=== PATIENT | female | born 1940 | race Caucasian/White ===

== ENCOUNTER 2024-10-07 10:25 | Inpatient (IN) | payer MEDICARE, BC, MEDICAID ==
[2024-10-07] VITALS (7 sets, daily range): BP systolic 107–121; BP diastolic 55–63; PULSE 56–72; RESP 13–18; TEMP 97.1–97.6; O2SAT 95–98
[~2024-10-07] VITALS: Ht 165.1 cm; Wt 55.0 kg
[2024-10-07 11:00] LABS: MEAN PLATELET VOLUME 7.6 FL (7.4-10.4); RED CELL DISTRIBUTION WIDTH 16.2 % (11.5-14.5)
--- NOTE | 2024-10-07 11:04 | Physician Documentation ---
History of Present Illness ~ Chief Complaint: Rectal Bleeding Stated Complaint: GI BLEED Time Seen by MD: 10:41 OK to notify your PCP?: Yes Mode of Arrival: Air Transport HPI 83-year-old female patient with a history of fibrotic liver disease, myelodysplastic syndrome requiring regular blood transfusion about every three months, diabetes mellitus, history of DVT, dyslipidemia and also DNR air transported from [facility] for further evaluation with GI for large rectal varix. It has one episode of rectal bleeding. She got 2 units of blood transfused and her hemoglobin went up from 5.8 to 7.4. At [facility] the patient has CT of the abdomen pelvis shows a large rectal varix probably the cause of her bleeding. Patient has a recent fall about a week ago after feeling dizzy and strike the face in the left side. Patient is awake and fully oriented with stable hemodynamics. Medication Reconciliation Allergies: Coded Allergies: No Known Allergies (Unverified , 10/07/24) Review of Systems ROS As stated above in the HPI, otherwise all systems are reviewed and negative. Physical Exam Vital Signs: Temperature: 97.0, Source: Oral, Heart Rate: 80, Respiratory Rate: 14, BP: 127/68, Pulse Oximetry: 95, Weight: 55.000 Oxygen Flow Rate: 0 Physical Exam Reviewed vital signs and they are well within normal range. Const: Awake alert and oriented fully, not in acute distress and not in pain Head: Left zygomatic arch abrasion from recent fall. Eyes: Normal Conjunctiva ENT: Normal External Ears, Nose and Mouth. Dry mucous membrane Neck: Full range of motion. No meningismus Resp: Clear to auscultation bilaterally. Normal work of breathing Cardio: Regular rate and rhythm, no murmurs. Skin well perfused, heart rate 74 and regular Abd: Soft, non-tender, non-distended. Normal bowel sounds. No rebound or guarding Skin: No petechiae or rashes. Warm and dry Back: No midline or flank tenderness Ext: No cyanosis, or edema Neuro: Awake and alert Psych: Normal Mood and Affect Progress Results/Orders Results/Orders Orders - OHNYULISA MD Hospitalist (10/07/24 11:07) Completed Orders - YULISA ONEIL MD Cbc/Diff (10/07/24 10:31) BMP (10/07/24 10:31) Lipase (10/07/24 10:31) CMP (10/07/24 10:31) PTT (10/07/24 10:31) Pt Inr (10/07/24 10:31) Type And Screen (10/07/24 10:31) Retic Ct (10/07/24 10:41) Ua W/Microscopic, Cult If Ind (10/07/24 12:55) Laboratory Tests Test 10/07/24 10:41 White Blood Count 3.5 L Red Blood Count 2.78 L Hemoglobin 8.0 L Hematocrit 23.8 L Mean Corpuscular Volume 85.6 Mean Corpuscular Hemoglobin 28.6 Mean Corpuscular Hemoglobin Concent 33.4 Red Cell Distribution Width 16.2 H Platelet Count 82 L Mean Platelet Volume 7.6 Neutrophils (%) (Auto) 78.9 H Lymphocytes (%) (Auto) 9.9 L Monocytes (%) (Auto) 9.4 Eosinophils (%) (Auto) 1.2 Basophils (%) (Auto) 0.6 Neutrophils # (Auto) 2.7 Lymphocytes # (Auto) 0.3 L Monocytes # (Auto) 0.3 Eosinophils # (Auto) 0.0 Basophils # (Auto) 0.0 CBC Comment Reticulocyte Count (auto) 2.3 H Absolute Reticulocyte Count < 6000 L Prothrombin Time 12.0 INR International Normalized Ratio 1.2 Activated Partial Thromboplast Time 27 Coagulation Comments Sodium Level 138 Potassium Level 4.6 Chloride Level 106 Carbon Dioxide Level 23.1 L Anion Gap 9 Blood Urea Nitrogen 25 H Creatinine 1.56 H Estimated GFR/1.73 m2 32 BUN/Creatinine Ratio 16.0 Glucose Level 167 H Hemoglobin A1c 6.1 Calcium Level 8.1 L Total Bilirubin 1.0 Aspartate Amino Transf (AST/SGOT) 23 Alanine Aminotransferase (ALT/SGPT) 24 Alkaline Phosphatase 104 Total Protein 6.6 Albumin 2.6 L Globulin 4.0 Albumin/Globulin Ratio 0.7 L Triglycerides Level 73 Cholesterol Level 85 LDL Cholesterol 38 L HDL Cholesterol 33 L Cholesterol/HDL Ratio 2.6 Lipase 25 Chemistry Comments Medical Decision Making Findings During the physical examination, the findings suggestive of acute life- threatening condition such as JVD, tracheal deviation, acidotic breathing, noisy stridorous breath sounds, pulses paradoxus, muffled heart sounds, unequal breath sounds, abdominal rigidity and rebound tenderness, focal neurological deficits, cool clammy skin, severe hypotension, severe tachycardia or bradycardia are absent. The patient has severe anemia of hemoglobin 5.4 that was treated with 2 units of PRBC and her hemoglobin right before transfer is 7.4. The patient is hemodynamically stable. Patient will be admitted to the hospital for further evaluation and treatment and GI consult. DISCLAIMER Inadvertent spelling and grammatical errors,inadvertent plumber supervisor errors,syntax errors, grammatical errors, and spelling errors are likely due to EMR/dictation software use and do not reflect on the overall quality of patient care. Note that the electronic time recorded on this note does not necessarily reflect the actual time of the patient encounter. Departure Disposition: 09 ADMITTED INPATIENT Impression: Primary Impression: Profound anemia Additional Impressions: Rectal bleeding Myelodysplastic syndrome Non-alcoholic cirrhosis Rectal varices Referrals: NO PRIMARY CARE PROVIDER (PCP) Signature Scribe Signature: None Attestation: My dictation YULISA ONEIL MD Oct 07, 2024 11:04
[2024-10-07 11:10] LABS: APTT 27 SECONDS (22-32); INR 1.2 INR
[2024-10-07 11:13] LABS: CREATININE 1.56 MG/DL (0.40-0.90); TOTAL CARBON DIOXIDE 23.1 MMOL/L (24-32); eCRCL 23 ML/MIN; eGFR 32 ML/MIN
[2024-10-07] MEDS ORDERED: magnesium sulf-water 4G/100mL 100 ML IV PRN (11:20)
[2024-10-07] MEDS ORDERED: potassium Cl 20 mEq SR tablet PO PRN ×2 (11:20)
[2024-10-07] MEDS ORDERED: magnesium sulf-water 2g/50mL 50 ML IV PRN (11:20)
[2024-10-07] MEDS ORDERED: ondansetron 4mg rapidly disintigrating tab PO PRN (11:20)
[2024-10-07] MEDS ORDERED: magnesium hydroxide 30ml (MOM) UD suspension PO PRN (11:20)
[2024-10-07] MEDS ORDERED: ondansetron/PF 4mg/2ml inj IV PRN (11:20)
[2024-10-07] MEDS ORDERED: mag hydrox/Alum hydrox/simeth 30ml oral suspension PO PRN (11:20)
[2024-10-07] MEDS ORDERED: HYDROcodone/acetaminophen 5mg/325mg tablet PO PRN (11:20)
[2024-10-07] MEDS ORDERED: HYDROcodone/acetaminophen 10/325mg tab PO PRN (11:20)
[2024-10-07] MEDS: normal saline 1000ml 1,000 ML IV SCH (11:45)
[2024-10-07] MEDS: propranolol 10mg tablet PO ONE (11:47)
--- NOTE | 2024-10-07 12:40 | HISTORY AND PHYSICAL ---
History & Physical Providers to CC ~ History of Present Illness Reason for Admit\Complaint: GIB, anemia History of Present Illness Noreen Wheatley is a 83-year-old female with past medical history significant for MDS receiving scheduled blood transfusion every three months, DVT, IVC filter, cirrhosis and splenomegaly, hemorrhoids, lower GIB with hx of colonoscopy 2 years ago, who was transferred from [facility] for evaluation with GI for large rectal varix bleeding. At the transferring facility, Hgb found to be 5.8g/dL and received [address] abdomen/pelvis w/ contrast revealed large varix extending to the rectum which is with a high index sepsis patient for the cause of bleeding, cirrhosis and splenomegaly, small volume ascites, bilateral hydronephrosis. Patient is a poor historian, hence most history was taken from MR from transferring facility. Patient reports one episode of bright red rectal bleeding as well as trip and fall that occurred five days ago striking head. Since the initial episode, no further episodes of GI bleed was noted. Patient denies prior CO/CAD, CVA, cardiac arrhythmia. Patient denies hematemesis, chest pain, palpitations, shortness of breath, abdominal pain, n/v/d, fever, chills, dysuria. Patient is to be admitted for further workups and treatment. Allergies: Coded Allergies: No Known Allergies (Unverified , 10/07/24) Past Medical History Past Medical History GIB MDS JUSTIN DVT IVC filter status NAFLD Cirrhosis Splenomegaly NAFLD Hemorrhoids Hyperlipidemia T2DM Hypertension Urinary incontinence Depression Past Surgical History Surgical History Comment Denies Past Social History Social History Comment Alcohol: Denies Tobacco: Former smoker, 40 pack year history Illicit drug use: Denies Living situation: Lives at home alone ROS ROS Other than positives in HPI, all 14 review of systems are negative Exam Vitals: Vital Signs Date Time Temp Pulse Resp B/P (MAP) Pulse Ox O2 Delivery O2 Flow Rate FiO2 10/07/24 10:52 19 10/07/24 10:26 97.0 80 95 0 General: Generalized weakness, A&Ox 3, NAD HEENT: Normocephalic, PERRLA Neck: Supple, trachea midline, no JVD Chest: Clear to auscultation bilaterally Cardiovascular: RRR, S1&S2 Abdomen: Soft and nontender Extremities: No cyanosis/clubbing/or edema Central Nervous System: No focal deficits Musculoskeletal: No paraspinal muscle tenderness, no muscle spasm Skin: Bruising over bilateral ocular and scabbed wound over left frontal lobe Diagnostic Data Last Recorded Lab Results: 10/07/24 1041 10/07/24 1041 Diagnostic Data: Laboratory Tests Test 10/07/24 10:41 Prothrombin Time 12.0 SECONDS (9.0-12.0) INR International Normalized Ratio 1.2 INR Activated Partial Thromboplast Time 27 SECONDS (22-32) Coagulation Comments Additional Plan Assessment GIB, likely lower Rectal varix, large Cirrhosis Splenomegaly NAFLD Hx LGIB Hemorrhoids UTI Acute urinary retention Hydroureteronephrosis, bilateral SOFY vs CKD Urinary incontinence MDS Pancytopenia Presence of IVC filter Fall, unspecified Compression fracture, T9, T12 -INR 1.2, CT abdomen/pelvis w/contrast reveals large varix extending to the rectum, cirrhosis, splenomegaly, severe sigmoid diverticulosis, small volume ascites, bilateral hydroureteronephrosis, compression fracture of T12 with evidence of healing fracture within T9, indwelling IVC filter -Cr 1.56, BUN/Cr 16, GFR 32 -Hgb 5.8g/dL up to 8.0g/dL after 2 units of PRBC transfusion at [place], UA UTI positive, CT head negative acute findings HTN HLD T2DM Hx chronic tobacco abuse -start hyper/hypoglycemic protocol; follow lipid panel, A1c Plan -start Ford, propranolol, PPI, Rocephin, prn bronchodilators, TLSO, PT eval -follow renal US, serial H/H, retic counttransfuse as needed, blood/urine culture -consulted GI Dr. Lopez, colonoscopy tomorrow DVT/VTE Prophylaxis: SCDs Code Status: DNR/DNI I spent a total of 35 minutes discussing Advanced Care Planning measures with the patient. Advance care planning: Discussed with patient the importance of advance care planning in case of emergent situation. We discussed various resuscitative measures/ ACP with the patient at the time of admission. Patient voiced understanding and patient has decided on a DNR/DNI status. Date of Service: Oct 07, 2024 Billing Provider: LAVON EASTMAN Common Visit Codes: [id number] INP/OBS CARE (HIGH) Secondary Visit Codes: [id number] CARE PLAN 30 MINUTES LAVON EASTMAN Oct 07, 2024 12:40
[2024-10-07] MEDS: LidoCAINE 2% Topical Jelly 11mL syringe (UROJET) TOP ONE (12:41)
[2024-10-07] MEDS ORDERED: glucagon, human recombinant 1mg kit SUBCUT PRN (12:50)
[2024-10-07] MEDS ORDERED: dextrose 50%-water 50ml dispensing syringe IV PRN ×2 (12:50)
[2024-10-07] MEDS ORDERED: DEXTROSE 15 GM of carb/4 tabs (each vial/BOTTLE has 4 tablets) PO PRN ×2 (12:50)
[2024-10-07] MEDS ORDERED: albuterol 2.5 MG/3 ML nebule NEB PRN (12:55)
[2024-10-07] MEDS ORDERED: ipratropium/albuterol 3ml nebule NEB PRN (12:55)
[2024-10-07 12:56] LABS: LDL CHOLESTEROL 38 MG/DL (50-100)
[2024-10-07 12:59] LABS: CHOL/HDL RATIO 2.6 (0.00-4.99)
[2024-10-07 13:20] LABS: LEUKOCYTE ESTERASE ,URINE MODERATE (Neg); NITRITES, URINE NEGATIVE (Neg); OCCULT BLOOD,URINE SMALL (Neg)
[2024-10-07 13:21] LABS: UA COLLECTION TYPE FOLEY CATH
[2024-10-07 13:41] LABS: ABSOLUTE RETICS # < 6000 /CUMM (23000-93000)
[2024-10-07 13:52] LABS: SQUAMOUS EPITHELIAL CELL,UR MODERATE /LPF (FEW)
[2024-10-07 14:08] LABS: WBC CLUMPS,URINE FEW /HPF (NEGATIVE)
--- NOTE | 2024-10-07 15:06 | RADIOLOGY REPORT ---
CT CT HEAD Indication: fall EXAM DATE: 10/07/2024 01:28 PM COMPARISON: None TECHNIQUE: CT of the head without intravenous contrast. RADIATION DOSE: CTDIvol: 53.2 mGy, DLP: 976 mGy*cm FINDINGS: There is no intracranial hemorrhage. There is no extra-axial fluid, mass, mass effect or midline shif t. The ventricles are midline and normal in size. Basilar cisterns are patent. There are mild periven tricular and subcortical white matter chronic microvascular ischemic changes. There is mild global ce rebral volume loss. The paranasal sinuses and mastoids are well-pneumatized. Postsurgical changes bilateral orbits. IMPRESSION: No intracranial hemorrhage or mass effect. Mild chronic microvascular ischemic changes. Mild global cerebral volume loss.
[2024-10-07] MEDS ORDERED: PEG 3350/Na sulf,bicarb,Cl/KCl oral sol 4 liter bottle PO ONE (15:20)
--- NOTE | 2024-10-07 15:24 | CONSULTATION REPORT - RESIDENT ---
Consult Providers to CC Resident Creating Document: QUINTINMarilynZACARIAS RES History of Present Illness Reason for Admit\Complaint: LGIB History of Present Illness This is an 83-year-old female with a significant medical history, including myelodysplastic syndrome (MDS) requiring blood transfusions every three months, cirrhosis with splenomegaly, hemorrhoids, non-alcoholic fatty liver disease (NAFLD), and a history of lower gastrointestinal bleeding (LGIB). She was transferred from [facility] for evaluation of rectal variceal bleeding. At the transferring facility, her hemoglobin was critically low at 5.8 g/dL, for which she received two units of PRBCs. Imaging via CT abdomen and pelvis revealed a large rectal varix as the likely source of bleeding, along with cirrhosis, splenomegaly, small-volume ascites, bilateral hydronephrosis, and severe sigmoid diverticulosis. The patient reports one episode of bright red rectal bleeding five days ago but denies hematemesis, melena, or further episodes of bleeding since. She also experienced a trip and fall five days ago, striking her head, with residual bruising and a scabbed wound on the left frontal region but no loss of consciousness or neurological symptoms. She denies abdominal pain, nausea, vomiting, chest pain, palpitations, dyspnea, fever, or chills. Despite being a poor historian, the information was corroborated from transferring facility records. Her past medical history is also notable for deep vein thrombosis (DVT) with an indwelling inferior vena cava (IVC) filter, hypertension, hyperlipidemia, type 2 diabetes mellitus (T2DM), and urinary incontinence. She has a remote 40 pack- year history of tobacco use but quit years ago. Socially, she lives alone and denies alcohol or illicit drug use. On admission, laboratory findings showed an improvement in hemoglobin to 8.0 g/dL post-transfusion, creatinine of 1.56 mg/dL with an estimated GFR of 32 mL/min, and INR of 1.2. Allergies: Coded Allergies: No Known Allergies (Unverified , 10/07/24) Past Medical History Past Medical History GIB MDS JUSTIN DVT IVC filter status NAFLD Cirrhosis Splenomegaly NAFLD Hemorrhoids Hyperlipidemia T2DM Hypertension Urinary incontinence Depression Past Surgical History Surgical History Comment Denies Surgeries in the past Past Social History Social History Comment Alcohol: Denies Tobacco: Former smoker, 40 pack year history Illicit drug use: Denies ROS ROS Reviewed in full. All negative except for pertinent positive HPI. Exam Vitals: Vital Signs Date Time Temp Pulse Resp B/P (MAP) Pulse Ox O2 Delivery O2 Flow Rate FiO2 10/07/24 15:00 69 14 112/60 (77) 98 0 10/07/24 10:26 97.0 General: Awake , alert, in apparent distress HEENT: Atraumatic, normocephalic, EOMI, anicteric sclera ; injuries of the left until and right orbit Neck: Trachea midline. Supple, full range of motion, no JVD Cardiac: Regular rhythm, regular rate with no murmurs all over the precordium. Respiratory: Equal breath sounds bilaterally, no tachypnea, no wheezing ,rub or rales, Chest wall is symmetric and without deformity. Gastrointestinal: Abdomen symmetric, non-distended, soft, non-tender, normal bowel sounds x4 quadrant, normoactive, no hepatosplenomegaly Musculoskeletal: No pedal edema Neurological: Speech is clear, alert, and oriented x 4. No motor or sensory deficit, deep tendon reflexes normal, cerebellar intact. Cranial nerves II-XII intact. Skin: Warm and dry Diagnostic Data Last Recorded Lab Results: 10/07/24 1041 10/07/24 1041 Diagnostic Data: Laboratory Tests Test 10/07/24 10:41 Prothrombin Time 12.0 SECONDS (9.0-12.0) INR International Normalized Ratio 1.2 INR Activated Partial Thromboplast Time 27 SECONDS (22-32) Coagulation Comments Additional Plan Acute Lower Gastrointestinal Bleeding: Large Rectal Varix Likely the primary source of bleeding based on CT findings. Exacerbated by cirrhosis with portal hypertension and splenomegaly. Hemodynamically stable post-transfusion with no active bleeding currently noted. Maintain hemodynamic stability with fluid resuscitation and transfusion to keep hemoglobin >7 g/dL. Continue serial monitoring of hemoglobin/hematocrit Colonoscopy to evaluate and potentially treat the rectal varix tomorrow Bowel prep with GoLYTELY ordered NPO after midnight If endoscopy fails or is contraindicated, consider interventional radiology for embolization or surgical options. Initiate propranolol to lower portal pressure and reduce variceal bleeding risk. Cirrhosis and Portal Hypertension Complicated by splenomegaly, small-volume ascites, and variceal formation. Evidence of compensated cirrhosis with possible decompensated features (GI bleed, splenomegaly, ascites). Normocytic normochromic Anemia Likely multifactorial from acute blood loss, chronic disease (MDS), and iron deficiency. Monitor ferritin, transferrin saturation, and iron panel to assess iron deficiency. Administer iron supplementation if deficiency confirmed. Continue PRBC transfusions as needed for symptomatic anemia. Renal Dysfunction Elevated creatinine and reduced GFR, concerning for acute kidney injury (SOFY) in the setting of volume depletion or chronic kidney disease (CKD). Fall with T9 and T12 Compression Fractures Healing fractures noted on imaging; possible correlation with generalized frailty. Evaluate for fall risk factors (frailty, orthostatic hypotension, muscle weakness). PT/OT evaluation for mobility and balance training. Consider TLSO brace for fracture support and pain management. Infection Prophylaxis: Start IV ceftriaxone to prevent spontaneous bacterial peritonitis. Glycemic Control: Initiate hyper/hypoglycemic protocol and monitor A1C. Zacarias Bell MD Internal Medicine Resident, PGY-1 Date of Service: Oct 07, 2024 Billing Provider: GEOFF JAEGER MD, GAURAV, RES Oct 07, 2024 15:24
[2024-10-07 16:46] LABS: MEAN PLATELET VOLUME 7.3 FL (7.4-10.4); RED CELL DISTRIBUTION WIDTH 16.5 % (11.5-14.5)
[2024-10-07] MEDS: INSULIN LISPRO 100 UNIT/ML INSULN.PEN MULTI-DOSE SQ SCH (17:00)
[2024-10-07] MEDS: PEG 3350/Na sulf,bicarb,Cl/KCl oral sol 4 liter bottle PO ONE (17:00)
--- NOTE | 2024-10-07 19:32 | RADIOLOGY REPORT ---
INDICATION: nikia, b/l hydroureteronephrosis TECHNIQUE: Multiple real-time sonographic images of the kidneys and bladder were obtained. COMPARISON: None FINDINGS: The right kidney measures 12.1 cm in length, which is normal in size. There is moderate rig ht-sided hydronephrosis. There is normal echogenicity of the right kidney. No hydronephrosis. The left kidney measures 9.3 cm in length, which is normal in size. There is normal echogenicity of t he left kidney. No hydronephrosis. There is a german catheter within the bladder. There is moderate abdominal sites. IMPRESSION: 1. Moderate right-sided hydronephrosis, recommend CT for further evaluation 2. Mild left renal atrophy 3. German catheter within a decompressed bladder 4. Abdominal sites
[2024-10-07] MEDS: docusate sod 100mg capsule PO SCH (19:35)
[2024-10-07] MEDS: propranolol 10mg tablet PO SCH (19:37)
[2024-10-07] MEDS: K and/or MAG REPLACEMENT MC SCH (20:00)
[2024-10-07] MEDS: CefTRIAXone 2gm/D5W 50ml BAG 50 ML IV ONE (20:16)
[2024-10-07 20:33] LABS: MEAN PLATELET VOLUME 7.0 FL (7.4-10.4); RED CELL DISTRIBUTION WIDTH 16.6 % (11.5-14.5)
[2024-10-07 22:54] LABS: MEAN PLATELET VOLUME 6.5 FL (7.4-10.4); RED CELL DISTRIBUTION WIDTH 16.5 % (11.5-14.5)
[2024-10-08] VITALS (7 sets, daily range): BP systolic 113–126; BP diastolic 52–62; PULSE 62–69; RESP 14–25; TEMP 97.1–98.4; O2SAT 96–97
[2024-10-08 06:22] LABS: MEAN PLATELET VOLUME 6.9 FL (7.4-10.4); RED CELL DISTRIBUTION WIDTH 16.5 % (11.5-14.5)
[2024-10-08 06:41] LABS: CREATININE 1.31 MG/DL (0.40-0.90); TOTAL CARBON DIOXIDE 22.1 MMOL/L (24-32); eCRCL 27 ML/MIN; eGFR 39 ML/MIN
[2024-10-08] MEDS: CefTRIAXone 2gm/D5W 50ml BAG 50 ML IV SCH (07:24)
--- NOTE | 2024-10-08 11:22 | PROGRESS NOTE ---
Daily Progress Note Providers to CC ~ Antibiotic Timeout Antibiotic Ordered?: Yes Subjective No acute events overnight. Patient examined at bedside. No new complaints, not in acute distress. Patient denies chest pain, sob, palpitations, abdominal pain, n/v/d. Vss, labs notable for stable H/H [facility], downtrending Cr. Plans for colonoscopy today if she is able to clear her bowel. Prep started last night. Objective Vital Signs Date Time Temp Pulse Resp B/P (MAP) Pulse Ox O2 Delivery O2 Flow Rate FiO2 10/08/24 08:15 16 96 Room Air 0.0 21 10/08/24 06:30 72 10/08/24 06:00 97.4 113/56 (75) Result Diagram: 10/08/24 0538 10/08/24 0538 Physical Exam General: Generalized weakness, A&Ox 3, NAD HEENT: Normocephalic, PERRLA Neck: Supple, trachea midline, no JVD Chest: Clear to auscultation bilaterally Cardiovascular: RRR, S1&S2 GI: Soft and nontender Extremities: No cyanosis/clubbing/or edema DOOR OPENER: CN II-XII intact, no focal deficits Musculoskeletal: No paraspinal muscle tenderness, no muscle spasm Skin: Warm and intact Coagulation Studies Laboratory Tests Test 10/07/24 10:41 Prothrombin Time 12.0 SECONDS (9.0-12.0) INR International Normalized Ratio 1.2 INR Activated Partial Thromboplast Time 27 SECONDS (22-32) Coagulation Comments Problem\Assessment\Plan Assessment GIB, likely lower Rectal varix, large Cirrhosis Splenomegaly NAFLD Hx LGIB Hemorrhoids UTI Acute urinary retention Hydroureteronephrosis, bilateral SOFY vs CKD Urinary incontinence MDS Pancytopenia Presence of IVC filter Fall, unspecified Compression fracture, T9, T12 -INR 1.2, CT abdomen/pelvis w/contrast reveals large varix extending to the rectum, cirrhosis, splenomegaly, severe sigmoid diverticulosis, small volume ascites, bilateral hydroureteronephrosis, compression fracture of T12 with evidence of healing fracture within T9, indwelling IVC filter -Cr 1.56, BUN/Cr 16, GFR 32 -Hgb 5.8g/dL up to 8.0g/dL after 2 units of PRBC transfusion at [place], UA UTI positive, CT head negative acute findings -10/08: stable H/H, downtrending Cr HTN HLD T2DM Hx chronic tobacco abuse -start hyper/hypoglycemic protocol; follow lipid panel, A1c Plan -start Ford, propranolol, PPI, Rocephin, prn bronchodilators, TLSO, PT eval -follow renal US, serial H/H, retic counttransfuse as needed, blood/urine culture -consulted GI Dr. Lopez, colonoscopy tomorrow -10/08: plan for colonoscopy if bowel clears DVT/VTE Prophylaxis: SCDs Code Status: DNR/DNI Date of Service: Oct 08, 2024 Billing Provider: LAVON EASTMAN Common Visit Codes: [id number] INP/OBS CARE(HIGH) LAVON EASTMAN Oct 08, 2024 11:22
--- NOTE | 2024-10-08 18:32 | PROGRESS NOTE ---
DATE: 10/08/2024 DICTATING PHYSICIAN: Sj Lopez MD SUBJECTIVE: The patient is doing well. Appears more cheerful and alert and oriented today. OBJECTIVE: VITAL SIGNS: Normal. HEART: Normal. LUNGS: Normal. ABDOMEN: Soft, nontender. No masses. No organomegaly. Bowel sounds are present. ASSESSMENT AND PLAN: The patient is admitted with rectal bleeding. Prep was not adequate today, so colonoscopy postponed to tomorrow. She seems to have finished all the prep and she is having clear bowel movements. We will plan a colonoscopy tomorrow. Sj Lopez MD TID: [id number] RECEIPT: [id number] /SUM
[2024-10-09] VITALS (15 sets, daily range): BP systolic 101–121; BP diastolic 46–65; PULSE 55–80; RESP 11–16; TEMP 97.4–98.4; O2SAT 95–100
[2024-10-09 03:00] LABS: MEAN PLATELET VOLUME 6.7 FL (7.4-10.4); RED CELL DISTRIBUTION WIDTH 16.7 % (11.5-14.5)
[2024-10-09 03:16] LABS: CREATININE 1.16 MG/DL (0.40-0.90); TOTAL CARBON DIOXIDE 20.4 MMOL/L (24-32); eCRCL 31 ML/MIN; eGFR 44 ML/MIN
[2024-10-09 08:08] LABS: MEAN PLATELET VOLUME 7.4 FL (7.4-10.4); RED CELL DISTRIBUTION WIDTH 16.4 % (11.5-14.5)
[2024-10-09] MEDS ORDERED: fentaNYL/PF 50MCG/1 ML 2ML syringe ONE (09:29)
[2024-10-09] MEDS ORDERED: propofol 10mg/ml 20ml vial IV ONE (09:42)
[2024-10-09] MEDS: potassium Cl 40MEQ/1/2NS 520ml 520 ML IV PRN (12:50)
--- NOTE | 2024-10-09 13:31 | PROGRESS NOTE ---
Daily Progress Note Providers to CC ~ Antibiotic Timeout Antibiotic Ordered?: Yes If Yes, Indications: UTI Subjective No acute events overnight. Patient examined at bedside. No new complaints, not in acute distress. Patient denies chest pain, sob, palpitations, abdominal pain, n/v/d. Patient underwent colonoscopy today with findings of rectal varix that does not necessitate immediate intervention at this time. Vss, labs notable for stable H/H and improving SOFY. Bilateral hydroureteronephrosis secondary to acute urinary retention on admission, has indwelling catheter and on IVF. Objective Vital Signs Date Time Temp Pulse Resp B/P (MAP) Pulse Ox O2 Delivery O2 Flow Rate FiO2 10/09/24 11:08 55 12 110/51 96 Room Air 10/09/24 10:31 5.0 10/09/24 06:00 98.4 10/08/24 08:15 21 Result Diagram: 10/09/24 0745 10/09/24 0250 Physical Exam General: Generalized weakness, A&Ox 3, NAD HEENT: Normocephalic, PERRLA Neck: Supple, trachea midline, no JVD Chest: Clear to auscultation bilaterally Cardiovascular: RRR, S1&S2 GI: Soft and nontender Extremities: No cyanosis/clubbing/or edema LABOR UNION BUSINESS REPRESENTATIVE: CN II-XII intact, no focal deficits Musculoskeletal: No paraspinal muscle tenderness, no muscle spasm Skin: Warm and intact Coagulation Studies Laboratory Tests Test 10/07/24 10:41 Prothrombin Time 12.0 SECONDS (9.0-12.0) INR International Normalized Ratio 1.2 INR Activated Partial Thromboplast Time 27 SECONDS (22-32) Coagulation Comments Problem\Assessment\Plan Assessment GIB, likely lower Rectal varix, large Cirrhosis Splenomegaly NAFLD Hx LGIB Hemorrhoids UTI Acute urinary retention Hydroureteronephrosis, bilateral 2/2 urinary retention 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- POA Urinary incontinence MDS Pancytopenia Presence of IVC filter Fall, unspecified Compression fracture, T9, T12 -INR 1.2, CT abdomen/pelvis w/contrast reveals large varix extending to the rectum, cirrhosis, splenomegaly, severe sigmoid diverticulosis, small volume ascites, bilateral hydroureteronephrosis, no nephrolithiasis, compression fracture of T12 with evidence of healing fracture within T9, indwelling IVC filter -Cr 1.56, BUN/Cr 16, GFR 32 -Hgb 5.8g/dL up to 8.0g/dL after 2 units of PRBC transfusion at [place], UA UTI positive, CT head negative acute findings -10/08: stable H/H, downtrending Cr -10/09: Cr downtrending, H/H stable; colonoscopy today with findings of rectal varix that does not necessitate immediate intervention at this time HTN HLD T2DM Hx chronic tobacco abuse -start hyper/hypoglycemic protocol; A1c 6.1% LDL 38 Plan -start Ford, propranolol, PPI, Rocephin, prn bronchodilators, TLSO, PT eval -follow renal US, serial H/H, retic counttransfuse as needed, blood/urine culture -consulted GI Dr. Lopez, colonoscopy tomorrow -10/08: plan for colonoscopy if bowel clears -10/09: colonoscopy today, pending PT eval DVT/VTE Prophylaxis: SCDs Code Status: DNR/DNI Date of Service: Oct 09, 2024 Billing Provider: LAVON EASTMAN Common Visit Codes: [id number] INP/OBS CARE(HIGH) LAVON EASTMAN Oct 09, 2024 13:31
[2024-10-09 14:29] LABS: MEAN PLATELET VOLUME 6.9 FL (7.4-10.4); RED CELL DISTRIBUTION WIDTH 17.0 % (11.5-14.5)
[2024-10-09 20:27] LABS: MEAN PLATELET VOLUME 6.7 FL (7.4-10.4); RED CELL DISTRIBUTION WIDTH 16.5 % (11.5-14.5)
[2024-10-10] VITALS (10 sets, daily range): BP systolic 110–125; BP diastolic 56–62; PULSE 67–72; RESP 13–17; TEMP 97.3–98.9; O2SAT 92–98
[2024-10-10 06:50] LABS: MEAN PLATELET VOLUME 7.1 FL (7.4-10.4); RED CELL DISTRIBUTION WIDTH 16.5 % (11.5-14.5)
[2024-10-10 07:25] LABS: CREATININE 1.18 MG/DL (0.40-0.90); TOTAL CARBON DIOXIDE 17.8 MMOL/L (24-32); eCRCL 30 ML/MIN; eGFR 44 ML/MIN
[2024-10-10 07:49] LABS: MEAN PLATELET VOLUME 6.3 FL (7.4-10.4); RED CELL DISTRIBUTION WIDTH 16.7 % (11.5-14.5)
[2024-10-10] MEDS: piperacillin/tazo 3.375gm/50ml 50 ML IV SCH (09:46)
[2024-10-10] MEDS ORDERED: PANT40TA54 PO (11:11)
[2024-10-10] MEDS ORDERED: PROP10TA10 PO (11:11)
[2024-10-10] MEDS ORDERED: AMOX500C2 PO (11:11)
[2024-10-10 14:11] LABS: MEAN PLATELET VOLUME 6.8 FL (7.4-10.4); RED CELL DISTRIBUTION WIDTH 17.1 % (11.5-14.5)
--- NOTE | 2024-10-10 16:56 | PROGRESS NOTE ---
Daily Progress Note Providers to CC ~ Antibiotic Timeout Antibiotic Ordered?: Yes If Yes, Indications: UTI Subjective No acute events overnight. Patient examined at bedside. No new complaints, not in acute distress. Patient denies chest pain, sob, palpitations, abdominal pain, n/v/d. Patient underwent colonoscopy on 10/09/24 with findings of rectal varix that does not necessitate immediate intervention at this time, nonbleeding internal hemorrhoids, severe diverticulosis without evidence of diverticular bleeding. Vss, labs notable for uptrending stable H/H and improving SOFY. Bilateral hydroureteronephrosis secondary to acute urinary retention on admission, has indwelling catheter and on IVF. Pending rehab. Objective Vital Signs Date Time Temp Pulse Resp B/P (MAP) Pulse Ox O2 Delivery O2 Flow Rate FiO2 10/10/24 15:00 98.2 71 15 115/60 (78) 97 Room Air 10/10/24 09:00 0 21 Result Diagram: 10/10/24 1359 10/10/24 0505 Physical Exam General: Generalized weakness, A&Ox 3, NAD HEENT: Normocephalic, PERRLA Neck: Supple, trachea midline, no JVD Chest: Clear to auscultation bilaterally Cardiovascular: RRR, S1&S2 GI: Soft and nontender Extremities: No cyanosis/clubbing/or edema [employer]ST [employer]ETING: CN II-XII intact, no focal deficits Musculoskeletal: No paraspinal muscle tenderness, no muscle spasm Skin: Warm and intact Coagulation Studies Laboratory Tests Test 10/07/24 10:41 Prothrombin Time 12.0 SECONDS (9.0-12.0) INR International Normalized Ratio 1.2 INR Activated Partial Thromboplast Time 27 SECONDS (22-32) Coagulation Comments Problem\Assessment\Plan Assessment GIB likely 2/2 internal hemorrhoid Rectal varix, large Cirrhosis, unable to further specify Splenomegaly NAFLD Hx LGIB Internal hemorrhoid UTI, MDRO Acute urinary retention Hydroureteronephrosis, bilateral 2/2 urinary retention 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 renal tubular stasis- POA Urinary incontinence MDS Pancytopenia Presence of IVC filter Fall, unspecified Compression fracture, T9, T12 -INR 1.2, CT abdomen/pelvis w/contrast reveals large varix extending to the rectum, cirrhosis, splenomegaly, severe sigmoid diverticulosis, small volume ascites, bilateral hydroureteronephrosis, no nephrolithiasis, compression fracture of T12 with evidence of healing fracture within T9, indwelling IVC filter -Cr 1.56, BUN/Cr 16, GFR 32 -Hgb 5.8g/dL up to 8.0g/dL after 2 units of PRBC transfusion at [place], UA UTI positive, CT head negative acute findings -10/08: stable H/H, downtrending Cr -10/09: Cr downtrending, H/H stable; colonoscopy with findings of rectal varix that does not necessitate immediate intervention at this time, nonbleeding internal hemorrhoids, severe diverticulosis without evidence of diverticular bleeding. -10/10: H/H stable, uptrending HTN HLD T2DM Hx chronic tobacco abuse -start hyper/hypoglycemic protocol; A1c 6.1% LDL 38 -case discussed with ID Dr. Hooper with recommendation against treating MDRO given patient is asymptomatic and with Ford Plan -start Ford, propranolol, PPI, Rocephin, prn bronchodilators, TLSO, PT eval -follow renal US, serial H/H, retic counttransfuse as needed, blood/urine culture -consulted GI Dr. Lopez, colonoscopy tomorrow -10/08: plan for colonoscopy if bowel clears -10/09: colonoscopy today, pending PT eval -10/10: pending rehab DVT/VTE Prophylaxis: SCDs Code Status: DNR/DNI Date of Service: Oct 10, 2024 Billing Provider: LAVON EASTMAN Common Visit Codes: [id number] INP/OBS CARE(HIGH) LAVON EASTMAN Oct 10, 2024 16:56
[2024-10-10 20:26] LABS: MEAN PLATELET VOLUME 6.9 FL (7.4-10.4); RED CELL DISTRIBUTION WIDTH 16.9 % (11.5-14.5)
[2024-10-11 02:00] VITALS: BP 115/64; PULSE 78; RESP 12; TEMP 97.8; O2SAT 97
[2024-10-11 05:26] LABS: HBSAG SCREEN Negative (Negative); HEP B CORE AB, IGM Negative (Negative); HEP B CORE AB, TOT Negative (Negative)
[2024-10-11 06:00] VITALS: BP 115/64; PULSE 78; RESP 14; TEMP 97.8; O2SAT 98
[2024-10-11 06:01] LABS: MEAN PLATELET VOLUME 7.5 FL (7.4-10.4); RED CELL DISTRIBUTION WIDTH 16.6 % (11.5-14.5)
[2024-10-11 06:09] LABS: CREATININE 1.23 MG/DL (0.40-0.90); TOTAL CARBON DIOXIDE 18.8 MMOL/L (24-32); eCRCL 29 ML/MIN; eGFR 41 ML/MIN
[2024-10-11 07:21] LABS: BANDS% (MANUAL) 1.0 % (0-10); EOSINOPHILS % (MANUAL) 3.0 % (0-6); LYMPHOCYTES % (MANUAL) 13.0 % (21-51); MONOCYTES % (MANUAL) 10.0 % (2-12); NEUTROPHILS % (MANUAL) 73.0 % (42-75); PLATELET ESTIMATE DECREASED
[2024-10-11 10:00] VITALS: BP 115/58; PULSE 80; RESP 14; TEMP 97.5; O2SAT 98
--- NOTE | 2024-10-11 15:18 | DISCHARGE SUMMARY ---
Discharge Summary Providers to CC ~ Discharge Summary Admission Diagnosis: GIB, anemia Hospital Course DATE OF ADMISSION: 10/07/2024 DATE OF DISCHARGE:10/11/2024 Condition on DC: Stable Total Time Spent on D/C: > 30 Minutes NELLY WREN MD Oct 11, 2024 15:18
== END 2024-10-11 13:15 | DRG 393 ==
LOC: ER 10:26 → ED HOLD 11:21 → PCU 3S 15:26
PROVIDERS: ADMIT Nurse Practitioner Family; ATTEND Nurse Practitioner Family
PROC: 0DBP8ZZ Excision of Rectum, Via Natural or Artificial Opening Endoscopic (ICD-10-PCS; principal; 2024-10-09 09:34)
DX: K64.8 Other hemorrhoids (principal); N17.0 Acute kidney failure with tubular necrosis; N13.6 Pyonephrosis; M48.54XA Collapsed vertebra, not elsewhere classified, thoracic region, initial encounter for fracture; D61.818 Other pancytopenia; R18.8 Other ascites; Z16.24 Resistance to multiple antibiotics; Z87.891 Personal history of nicotine dependence; Z66 Do not resuscitate; I86.8 Varicose veins of other specified sites; I10 Essential (primary) hypertension; E78.5 Hyperlipidemia, unspecified; D12.8 Benign neoplasm of rectum; F32.A Depression, unspecified; E11.9 Type 2 diabetes mellitus without complications; D46.9 Myelodysplastic syndrome, unspecified; K74.60 Unspecified cirrhosis of liver; R16.1 Splenomegaly, not elsewhere classified; K76.0 Fatty (change of) liver, not elsewhere classified; K57.30 Diverticulosis of large intestine without perforation or abscess without bleeding
CPT/HCPCS: 36415; 45385; 70450; 76770; 80053; 80061; 81001; 82948; 83036; 83605; 83690; 83735; 85007; 85025; 85027; 85045; 85610; 85730; 86704; 86705; 86885; 86900; 86901; 87040; 87077; 87081; 87088; 87186; 87340; 94760; 97110; 97116; 97162; 99285; A4314; A6212; A6250; C1889; G0378; J0696; J1815; J2470; J2543; J2704; J3010; J3480; J3490; J7030; J7040